=== PATIENT | female | born 1935 | race African-American/Black ===

== ENCOUNTER 2017-01-29 11:03 | Inpatient (IN) | payer MEDICARE, MEDICAID ==
[~2017-01-29] VITALS: Ht 165.1 cm; Wt 77.8 kg
[~2017-01-29 11:03] MED LIST: ASPI-1158; BENA5TAB3; DIAZ5TAB4; GLYB5TAB7; METF500T4; METO5TAB2; OMEPRAZOLE; OXYC-662
[2017-01-29 11:39] LABS: BASOPHILS % 0.6 % (0.0-2.0); HEMATOCRIT. 40.6 % (36.0-48.0); LYMPHOCYTES % 29.8 % (20.0-50.0); MEAN PLATELET VOLUME 8.8 fl (7.4-10.4); NEUTROPHILS % 58.6 % (40.0-76.0); PLATELET 224 x1000/uL (130-400); RED BLOOD CELL COUNT 5.21 mill/uL (4.2-5.4); RED CELL DISTRIBUTION WIDTH 14.4 % (11.6-14.6)
[2017-01-29 11:51] LABS: CARBON DIOXIDE 27 mEq/L (21-32); CHLORIDE 106 mEq/L (98-107)
[2017-01-29 11:55] LABS: TROPONIN I < 0.02 ng/mL (0.00-0.04)
[2017-01-29] MEDS ORDERED: SODIUM CHLORIDE 0.9% 1,000 ML IV ONE (12:06)
[2017-01-29] MEDS ORDERED: INSULIN REGULAR (HUMULIN R) 300UNITS/3ML SUBCUT ONE (12:15)
[2017-01-29 12:34] LABS: CLARITY URINE CLEAR (CLEAR); COLOR URINE YELLOW (YELLOW); KETONES URINE NEGATIVE (NEGATIVE); LEUKOCYTE ESTERASE URINE NEGATIVE (NEGATIVE); NITRITE URINE POSITIVE (NEGATIVE); OCCULT BLOOD URINE NEGATIVE (NEGATIVE); PROTEIN URINE NEGATIVE (NEGATIVE); SPECIFIC GRAVITY URINE 1.019 (1.005-1.030); UROBILINOGEN URINE 0.2 E.U./dL (0.2-1.0)
[2017-01-29] MEDS ORDERED: CEFTRIAXONE 1 G PREMIX 50 ML IV ONE (14:15)
[2017-01-29] MEDS ORDERED: ACET-1465 PO (16:51)
[2017-01-29] MEDS ORDERED: ATOR10TA69 PO (16:51)
[2017-01-29] MEDS ORDERED: LEVVL SQ (16:51)
[2017-01-29] MEDS ORDERED: GLIP10TA3 PO (16:51)
[2017-01-29] MEDS ORDERED: BENA20TA3 PO (16:51)
[2017-01-29] MEDS ORDERED: ESOM40CA PO (16:51)
[2017-01-29] MEDS ORDERED: SITA100T11 PO (16:51)
[2017-01-29] MEDS ORDERED: INSU100C6 SQ (16:51)
[2017-01-29] MEDS ORDERED: GABA-529 PO (16:51)
[2017-01-29] MEDS ORDERED: LORA10TA7 PO (16:51)
[2017-01-29] MEDS ORDERED: ACETAMINOPHEN 325MG TABLET PO PRN (17:15)
[2017-01-29] MEDS ORDERED: DIPHENHYDRAMINE 50MG/ML VIAL IV PRN (17:15)
[2017-01-29] MEDS ORDERED: ONDANSETRON HCL 4MG/2ML VIAL IV PRN (17:15)
[2017-01-29] MEDS ORDERED: MECLIZINE 25MG TABLET PO PRN (17:15)
[2017-01-29] MEDS ORDERED: MAGNESIUM/ALUMINUM HYDROXIDE/SIMETHICONE 30ML UDC PO PRN (17:15)
[2017-01-29] MEDS ORDERED: CLONIDINE 0.1MG TABLET PO PRN (17:15)
[2017-01-29] MEDS ORDERED: GUAIFENESIN 200MG/10ML SUGAR FREE UDC PO PRN (17:15)
[2017-01-29] MEDS: BLOOD SUGAR DIAGNOSTIC STRIP TEST SCH ×2 (17:20→21:31)
[2017-01-29] MEDS ORDERED: DEXTROSE 50% WATER 50ML SYRINGE IV PRN (17:30)
[2017-01-29] MEDS ORDERED: LEVOFLOXACIN 500MG PREMIX 100 ML IV NR (18:30)
[2017-01-29] MEDS: ENOXAPARIN 40MG/0.4ML SYR SUBCUT SCH (18:48)
[2017-01-29] MEDS: GABAPENTIN 100MG CAPSULE PO SCH (18:48)
[2017-01-29] MEDS: INSULIN LISPRO 100 UNITS/ML SUBCUT SCH ×2 (18:50→21:42)
[2017-01-29] MEDS: BENAZEPRIL 20MG TABLET PO SCH (21:40)
[2017-01-29] MEDS: ATORVASTATIN CALCIUM 10MG TABLET PO SCH (21:40)
[2017-01-29] MEDS: HYDROCODONE/ACETAMINOPHEN 5/325MG TABLET PO PRN (21:41)
[2017-01-30] MEDS: BLOOD SUGAR DIAGNOSTIC STRIP TEST SCH ×4 (06:24→21:00)
[2017-01-30 06:27] LABS: BASOPHILS % 0.5 % (0.0-2.0); HEMATOCRIT. 38.1 % (36.0-48.0); HEMOGLOBIN. 12.3 g/dL (12.0-16.0); LYMPHOCYTES % 34.3 % (20.0-50.0); MEAN CORPUSCULAR HEMOGLOBIN 25.2 pg (28.0-32.0); MEAN CORPUSCULAR VOLUME 77.7 fL (81.0-99.0); MEAN PLATELET VOLUME 9.3 fl (7.4-10.4); MONOCYTES % 7.6 % (2.0-8.0); NEUTROPHILS % 53.6 % (40.0-76.0); PLATELET 198 x1000/uL (130-400); RED BLOOD CELL COUNT 4.91 mill/uL (4.2-5.4); RED CELL DISTRIBUTION WIDTH 14.4 % (11.6-14.6)
[2017-01-30] MEDS: GLIPIZIDE 10MG TABLET PO SCH ×2 (06:30→18:02)
[2017-01-30 06:56] LABS: CARBON DIOXIDE 26 mEq/L (21-32); CHLORIDE 108 mEq/L (98-107)
[2017-01-30] MEDS: ASPIRIN 81MG EC TABLET PO SCH ×2 (09:00→09:51)
[2017-01-30] MEDS: BENAZEPRIL 20MG TABLET PO SCH ×2 (09:51→21:57)
[2017-01-30] MEDS: GABAPENTIN 100MG CAPSULE PO SCH ×3 (09:51→18:02)
[2017-01-30] MEDS: LORATADINE 10MG TABLET PO SCH (09:52)
[2017-01-30] MEDS: INSULIN LISPRO 100 UNITS/ML SUBCUT SCH ×4 (09:53→22:03)
[2017-01-30] MEDS ORDERED: LEVOFLOXACIN 250MG PREMIX 50 ML IV SCH (18:00)
[2017-01-30] MEDS: ENOXAPARIN 40MG/0.4ML SYR SUBCUT SCH (18:02)
[2017-01-30] MEDS: ATORVASTATIN CALCIUM 10MG TABLET PO SCH (21:58)
[2017-01-30] MEDS: HYDROCODONE/ACETAMINOPHEN 5/325MG TABLET PO PRN (23:24)
[2017-01-31] MEDS: BLOOD SUGAR DIAGNOSTIC STRIP TEST SCH ×4 (07:39→21:00)
[2017-01-31] MEDS: GLIPIZIDE 10MG TABLET PO SCH ×2 (08:27→18:10)
[2017-01-31] MEDS: ASPIRIN 81MG EC TABLET PO SCH ×2 (08:27→08:31)
[2017-01-31] MEDS: LORATADINE 10MG TABLET PO SCH (08:27)
[2017-01-31] MEDS: GABAPENTIN 100MG CAPSULE PO SCH ×3 (08:27→18:11)
[2017-01-31] MEDS: BENAZEPRIL 20MG TABLET PO SCH ×2 (08:28→21:57)
[2017-01-31] MEDS: INSULIN LISPRO 100 UNITS/ML SUBCUT SCH ×4 (08:28→21:58)
[2017-01-31] MEDS: INSULIN DETEMIR UD 100 UNITS/ML SYR SUBCUT SCH (16:49)
[2017-01-31] MEDS: MECLIZINE 25MG TABLET PO SCH (18:10)
[2017-01-31] MEDS: ENOXAPARIN 40MG/0.4ML SYR SUBCUT SCH (18:11)
[2017-01-31] MEDS ORDERED: TRAZODONE HCL 50MG TABLET PO SCH (21:00)
[2017-01-31] MEDS: ATORVASTATIN CALCIUM 10MG TABLET PO SCH (21:57)
[2017-02-01] MEDS: MECLIZINE 25MG TABLET PO SCH ×3 (01:15→17:59)
[2017-02-01] MEDS: DOCUSATE SODIUM 100MG CAPSULE PO PRN ×2 (01:15→08:22)
[2017-02-01] MEDS: BLOOD SUGAR DIAGNOSTIC STRIP TEST SCH ×3 (07:20→17:52)
[2017-02-01] MEDS: GLIPIZIDE 10MG TABLET PO SCH ×2 (08:22→17:59)
[2017-02-01] MEDS: BENAZEPRIL 20MG TABLET PO SCH (08:22)
[2017-02-01] MEDS: LORATADINE 10MG TABLET PO SCH (08:22)
[2017-02-01] MEDS: GABAPENTIN 100MG CAPSULE PO SCH ×3 (08:22→17:59)
[2017-02-01] MEDS: INSULIN LISPRO 100 UNITS/ML SUBCUT SCH ×3 (08:23→17:50)
[2017-02-01] MEDS: INSULIN DETEMIR UD 100 UNITS/ML SYR SUBCUT SCH (10:29)
[2017-02-01] MEDS ORDERED: LEVOFLOXACIN 250MG TABLET PO SCH (11:00)
[2017-02-01] MEDS: ENOXAPARIN 40MG/0.4ML SYR SUBCUT SCH (17:59)
[2017-02-01 18:18] VITALS: BP 108/60
== END 2017-02-01 18:30 | disposition home or self-care (01) | DRG 690 ==
LOC: ER 11:03 → 6WST 13:03 → ENRESERV 14:27
PROVIDERS: ADMIT Internal Medicine; ATTEND Internal Medicine
DX: N39.0 Urinary tract infection, site not specified (principal); E44.0 Moderate protein-calorie malnutrition; I10 Essential (primary) hypertension; E11.65 Type 2 diabetes mellitus with hyperglycemia; M19.90 Unspecified osteoarthritis, unspecified site; F41.1 Generalized anxiety disorder; R26.89 Other abnormalities of gait and mobility; Z85.3 Personal history of malignant neoplasm of breast; Z83.3 Family history of diabetes mellitus; Z82.49 Family history of ischemic heart disease and other diseases of the circulatory system; Z80.9 Family history of malignant neoplasm, unspecified; Z88.6 Allergy status to analgesic agent; Z88.8 Allergy status to other drugs, medicaments and biological substances; Z90.710 Acquired absence of both cervix and uterus
CPT/HCPCS: 36415; 70450; 71010; 80053; 81001; 82962; 84484; 85025; 87086; 93005; 93970; 96360; 96372; 97162; 99285; J1650; J1815; J1956; J2405; J7030; J7050; J8597

== ENCOUNTER → 2017-06-01 | Outpatient (CLI) | payer MEDICARE, MEDICAID ==
[~2017-06-01] MED LIST changes: +ACET-1465 PO; -ASPI-1158; +ATOR10TA69 PO; +BENA20TA3 PO; -BENA5TAB3; -DIAZ5TAB4; +ESOM40CA PO; +GABA-529 PO; +GLIP10TA3 PO; -GLYB5TAB7; +INSU100C6 SQ; +LEVVL SQ; +LORA10TA7 PO; -METF500T4; -METO5TAB2; -OMEPRAZOLE; -OXYC-662; +SITA100T11 PO
== END | disposition home or self-care (01) ==
LOC: MAMMO 09:47
PROVIDERS: ATTEND Internal Medicine
DX: Z12.31 Encounter for screening mammogram for malignant neoplasm of breast (principal)
CPT/HCPCS: G0202

== ENCOUNTER 2018-02-10 01:08 | Emergency (ER) | payer MEDICARE, MEDICAID ==
[~2018-02-10] VITALS: Ht 165.1 cm; Wt 104.0 kg
[2018-02-10] MEDS ORDERED: SODIUM CHLORIDE 0.9% 1,000 ML IV ONE (01:27)
[2018-02-10] MEDS ORDERED: TRAMADOL 50MG TABLET PO ONE (01:30)
[2018-02-10 02:01] LABS: BASOPHILS % 0.7 % (0.0-2.0); EOSINOPHILS % 3.3 % (0.0-5.0); HEMOGLOBIN. 13.2 g/dL (12.0-16.0); MEAN CORPUSCULAR HEMOGLOBIN 25.4 pg (28.0-32.0); MEAN CORPUSCULAR VOLUME 78.5 fL (81.0-99.0); MEAN PLATELET VOLUME 9.3 fl (7.4-10.4); MONOCYTES % 8.4 % (2.0-8.0); NEUTROPHILS % 55.6 % (40.0-76.0); PLATELET 224 x1000/uL (130-400); RED BLOOD CELL COUNT 5.22 mill/uL (4.2-5.4)
[2018-02-10 02:05] LABS: CHLORIDE 107 mEq/L (98-107)
[2018-02-10 02:15] LABS: BETA HYDROXYBUTYRATE 0.1 mMol/L (0.0-0.3)
[2018-02-10] MEDS ORDERED: INSULIN REGULAR (HUMULIN R) 300UNITS/3ML IV ONE (02:30)
[2018-02-10 05:50] VITALS: BP 122/54
== END 2018-02-10 06:02 | disposition home or self-care (01) ==
LOC: ER 01:08
DX: E11.65 Type 2 diabetes mellitus with hyperglycemia (principal); Z79.82 Long term (current) use of aspirin; Z79.4 Long term (current) use of insulin; Z88.5 Allergy status to narcotic agent
CPT/HCPCS: 36415; 80053; 82010; 82962; 85025; 93005; 96361; 96374; 99285; J1815; J7030

== ENCOUNTER 2018-04-20 10:07 | Emergency (ER) | payer MEDICARE, MEDICAID ==
[~2018-04-20] VITALS: Ht 157.5 cm; Wt 104.0 kg
[~2018-04-20 10:07] MED LIST changes: +BENA20TA10 PO; -BENA20TA3 PO
[2018-04-20] MEDS ORDERED: SODIUM CHLORIDE 0.9% 1,000 ML IV ONE (10:52)
[2018-04-20] MEDS ORDERED: MORPHINE SULFATE 4 MG/ML CPJ (NOT FOR IM USE) IV STA (10:52)
[2018-04-20] MEDS ORDERED: ONDANSETRON HCL 4MG/2ML INJ IV STA (10:52)
[2018-04-20 11:31] LABS: CLARITY URINE CLEAR (CLEAR); COLOR URINE YELLOW (YELLOW); KETONES URINE NEGATIVE (NEGATIVE); LEUKOCYTE ESTERASE URINE 1+ (NEGATIVE); NITRITE URINE NEGATIVE (NEGATIVE); OCCULT BLOOD URINE NEGATIVE (NEGATIVE); PH URINE 6.5 (4.5-8.0); PROTEIN URINE NEGATIVE (NEGATIVE); SPECIFIC GRAVITY URINE 1.009 (1.005-1.030); UROBILINOGEN URINE 0.2 E.U./dL (0.2-1.0)
[2018-04-20 12:06] LABS: CHLORIDE 106 mEq/L (98-107)
[2018-04-20 12:09] LABS: PARTIAL THROMBOPLASTIN TIME 27.6 sec (23.4-31.0); PROTHROMBIN TIME 10.5 sec (9.1-11.1)
[2018-04-20 12:22] LABS: BASOPHILS % 0.4 % (0.0-2.0); EOSINOPHILS % 2.7 % (0.0-5.0); HEMATOCRIT. 42.5 % (36.0-48.0); HEMOGLOBIN. 13.9 g/dL (12.0-16.0); LYMPHOCYTES % 28.1 % (20.0-50.0); MEAN CORPUSCULAR HEMOGLOBIN 25.9 pg (28.0-32.0); MEAN CORPUSCULAR VOLUME 79.3 fL (81.0-99.0); MEAN PLATELET VOLUME 9.5 fl (7.4-10.4); MONOCYTES % 5.3 % (2.0-8.0); NEUTROPHILS % 63.5 % (40.0-76.0); PLATELET 237 x1000/uL (130-400); RED BLOOD CELL COUNT 5.36 mill/uL (4.2-5.4); RED CELL DISTRIBUTION WIDTH 13.9 % (11.6-14.6)
[2018-04-20 13:15] VITALS: BP 118/100
== END 2018-04-20 13:38 | disposition home or self-care (01) ==
LOC: ER 10:07
DX: K43.9 Ventral hernia without obstruction or gangrene (principal); N39.0 Urinary tract infection, site not specified; E11.9 Type 2 diabetes mellitus without complications; I10 Essential (primary) hypertension; J98.11 Atelectasis; J84.10 Pulmonary fibrosis, unspecified; Z90.710 Acquired absence of both cervix and uterus; Z88.5 Allergy status to narcotic agent; Z88.6 Allergy status to analgesic agent; Z88.8 Allergy status to other drugs, medicaments and biological substances; Z79.4 Long term (current) use of insulin; Z98.1 Arthrodesis status
CPT/HCPCS: 36415; 71045; 74176; 80053; 81003; 83690; 85025; 85610; 85730; 86850; 86900; 86901; 87077; 87086; 87186; 93005; 96361; 96374; 96375; 99285; J2270; J2405; J7030

== ENCOUNTER 2018-12-11 21:24 | Inpatient (IN) | payer MEDICARE, MEDICAID ==
[~2018-12-11] VITALS: Ht 152.4 cm; Wt 102.1 kg
[2018-12-11] MEDS ORDERED: SODIUM CHLORIDE 0.9% 1,000 ML IV ONE (23:54)
[2018-12-12 00:08] LABS: BASOPHILS % 0.5 % (0.0-2.0); EOSINOPHILS % 2.9 % (0.0-5.0); HEMATOCRIT. 42.5 % (36.0-48.0); HEMOGLOBIN. 13.9 g/dL (12.0-16.0); LYMPHOCYTES % 25.5 % (20.0-50.0); MEAN CORPUSCULAR HEMOGLOBIN 26.2 pg (28.0-32.0); MEAN CORPUSCULAR VOLUME 80.5 fL (81.0-99.0); MEAN PLATELET VOLUME 10.1 fl (7.4-10.4); NEUTROPHILS % 65.1 % (40.0-76.0); PLATELET 231 x1000/uL (130-400); RED BLOOD CELL COUNT 5.28 mill/uL (4.2-5.4); RED CELL DISTRIBUTION WIDTH 13.5 % (11.6-14.6)
[2018-12-12 00:11] LABS: CHLORIDE 107 mEq/L (98-107)
[2018-12-12 00:14] LABS: CLARITY URINE CLEAR (CLEAR); COLOR URINE YELLOW (YELLOW); KETONES URINE NEGATIVE (NEGATIVE); LEUKOCYTE ESTERASE URINE NEGATIVE (NEGATIVE); NITRITE URINE NEGATIVE (NEGATIVE); OCCULT BLOOD URINE NEGATIVE (NEGATIVE); PROTEIN URINE NEGATIVE (NEGATIVE); SPECIFIC GRAVITY URINE 1.021 (1.005-1.030); UROBILINOGEN URINE 0.2 E.U./dL (0.2-1.0)
[2018-12-12 00:22] LABS: BETA HYDROXYBUTYRATE 0.1 mMol/L (0.0-0.3)
[2018-12-12] MEDS ORDERED: CEFTRIAXONE 1 G PREMIX 50 ML IV SCH ×2 (00:45→21:00)
[2018-12-12 00:52] LABS: BG BASE EXCESS -1.6 mmol/L (-2.0-2.0); BG CARBOXYHEMOGLOBIN 0.9 % (0.5-1.5); BG DEOXYHEMOGLOBIN 4.9 % (0.0-5.0); BG FRACTION INSPIRED OXYGEN 21; BG HCO3 ACT 23.1 mmol/L (22.0-26.0); BG METHEMOGLOBIN 0.2 % (0.0-1.5); BG PCO2 39.2 mmHg (35.0-45.0); BG PH 7.388 (7.350-7.450); BG SAMPLE SITE LEFT RADIAL; BG TOTAL HEMOGLOBIN 13.9 g/dL (12.0-18.0); BG VENT MODE ROOM AIR
[2018-12-12 03:10] VITALS: BP_SYST 140; BP_SYST 145; BP_DIAS 50; BP_DIAS 56
[2018-12-12 04:00] VITALS: BP 145/56
[2018-12-12] MEDS ORDERED: POTA10CA42 PO (04:44)
[2018-12-12] MEDS ORDERED: CELE-84 PO (04:44)
[2018-12-12] MEDS ORDERED: DEXTROSE 50% WATER 50ML SYRINGE IV PRN (05:15)
[2018-12-12] MEDS ORDERED: DIPHENHYDRAMINE 25MG CAPSULE PO PRN (05:15)
[2018-12-12] MEDS: GLIPIZIDE 10MG TABLET PO SCH (06:33)
[2018-12-12] MEDS: GABAPENTIN 100MG CAPSULE PO SCH ×3 (06:33→21:00)
[2018-12-12] MEDS: BLOOD SUGAR DIAGNOSTIC STRIP TEST SCH ×4 (06:34→20:59)
[2018-12-12] MEDS: INSULIN LISPRO 100 UNITS/ML SUBCUT SCH ×6 (06:38→20:59)
[2018-12-12 08:00] VITALS: BP 126/54
[2018-12-12] MEDS: BENAZEPRIL 10MG TABLET PO SCH ×2 (09:20→20:57)
[2018-12-12] MEDS: INSULIN GLARGINE UD 100 UNITS/ML SYR SUBCUT SCH (09:21)
[2018-12-12 12:00] VITALS: BP 106/51
[2018-12-12] MEDS: TRAMADOL 50MG TABLET PO PRN (12:58)
[2018-12-12 16:00] VITALS: BP 142/51
[2018-12-12] MEDS: ENOXAPARIN 30MG/0.3ML SYR SUBCUT SCH (18:04)
[2018-12-12 20:00] VITALS: BP 148/69
[2018-12-12] MEDS: ATORVASTATIN CALCIUM 10MG TABLET PO SCH (20:57)
[2018-12-13] VITALS: BP 124/63
[2018-12-13 04:00] VITALS: BP 115/60
[2018-12-13] MEDS: GABAPENTIN 100MG CAPSULE PO SCH ×3 (05:47→20:51)
[2018-12-13] MEDS: GLIPIZIDE 10MG TABLET PO SCH (06:22)
[2018-12-13] MEDS: INSULIN LISPRO 100 UNITS/ML SUBCUT SCH ×7 (06:24→20:50)
[2018-12-13] MEDS: BLOOD SUGAR DIAGNOSTIC STRIP TEST SCH ×4 (06:25→20:52)
[2018-12-13 08:00] VITALS: BP 112/58
[2018-12-13] MEDS: BENAZEPRIL 10MG TABLET PO SCH ×2 (08:51→20:52)
[2018-12-13] MEDS: ENOXAPARIN 30MG/0.3ML SYR SUBCUT SCH ×2 (08:52→20:51)
[2018-12-13] MEDS: TRAMADOL 50MG TABLET PO PRN (08:52)
[2018-12-13] MEDS: INSULIN GLARGINE UD 100 UNITS/ML SYR SUBCUT SCH (09:06)
[2018-12-13] MEDS: CELECOXIB 200MG CAPSULE PO SCH (15:18)
[2018-12-13] MEDS: MAGNESIUM HYDROXIDE 400MG/5ML 30ML UDC PO PRN (15:22)
[2018-12-13 16:00] VITALS: BP 148/69
[2018-12-13 20:00] VITALS: BP 97/53
[2018-12-13] MEDS: ATORVASTATIN CALCIUM 10MG TABLET PO SCH (20:51)
[2018-12-13] MEDS ORDERED: TRAZODONE HCL 50MG TABLET PO SCH (21:00)
[2018-12-14] VITALS: BP 97/55
[2018-12-14 04:00] VITALS: BP 110/61
[2018-12-14] MEDS: GABAPENTIN 100MG CAPSULE PO SCH ×2 (06:01→12:12)
[2018-12-14] MEDS: MAGNESIUM HYDROXIDE 400MG/5ML 30ML UDC PO PRN (06:02)
[2018-12-14] MEDS: GLIPIZIDE 10MG TABLET PO SCH (06:21)
[2018-12-14] MEDS: INSULIN LISPRO 100 UNITS/ML SUBCUT SCH ×4 (06:24→12:13)
[2018-12-14] MEDS: BLOOD SUGAR DIAGNOSTIC STRIP TEST SCH ×2 (06:25→10:46)
[2018-12-14] MEDS: ENOXAPARIN 30MG/0.3ML SYR SUBCUT SCH (08:03)
[2018-12-14] MEDS: BENAZEPRIL 10MG TABLET PO SCH (08:03)
[2018-12-14] MEDS: CELECOXIB 200MG CAPSULE PO SCH (08:03)
[2018-12-14] MEDS ORDERED: INSULIN GLARGINE UD 100 UNITS/ML SYR SUBCUT SCH (10:00)
== END 2018-12-14 14:45 | disposition home health service (06) | DRG 637 ==
LOC: ER 21:48 → EDBEDREQ 12-12 01:07 → EDBEDREQTM 12-12 01:07 → ENRESERV 12-12 01:56 → 8WST 12-12 03:19
PROVIDERS: ADMIT Internal Medicine; ATTEND Internal Medicine
DX: E11.65 Type 2 diabetes mellitus with hyperglycemia (principal); G92 Toxic encephalopathy; Z68.41 Body mass index [BMI] 40.0-44.9, adult; I10 Essential (primary) hypertension; E66.01 Morbid (severe) obesity due to excess calories; E78.00 Pure hypercholesterolemia, unspecified; G89.4 Chronic pain syndrome; M54.2 Cervicalgia; M54.5 Low back pain; E11.42 Type 2 diabetes mellitus with diabetic polyneuropathy; M15.9 Polyosteoarthritis, unspecified; E87.5 Hyperkalemia; F41.1 Generalized anxiety disorder; I11.9 Hypertensive heart disease without heart failure; M75.02 Adhesive capsulitis of left shoulder; Z90.710 Acquired absence of both cervix and uterus; Z79.4 Long term (current) use of insulin; Z88.6 Allergy status to analgesic agent; Z88.5 Allergy status to narcotic agent; Z88.8 Allergy status to other drugs, medicaments and biological substances; Z79.899 Other long term (current) drug therapy
CPT/HCPCS: 36415; 36600; 71045; 82010; 82375; 82805; 82962; 84484; 93005; 93970; 96365; 97116; 97162; 97166; 99285; J0696; J1650; J1815; J7030; Q0163

== ENCOUNTER 2019-01-16 01:12 | Inpatient (IN) | payer MEDICARE, MEDICAID ==
[~2019-01-16] VITALS: Ht 162.6 cm; Wt 108.4 kg
[~2019-01-16 01:12] MED LIST changes: +CELE-84 PO; +POTA10CA42 PO
[2019-01-16] MEDS ORDERED: SODIUM CHLORIDE 0.9% 1,000 ML IV ONE (03:29)
[2019-01-16 04:21] LABS: BASOPHILS % 0.4 % (0.0-2.0); EOSINOPHILS % 1.8 % (0.0-5.0); HEMATOCRIT. 40.3 % (36.0-48.0); HEMOGLOBIN. 13.2 g/dL (12.0-16.0); LYMPHOCYTES % 13.7 % (20.0-50.0); MEAN CORPUSCULAR HEMOGLOBIN 26.2 pg (28.0-32.0); MEAN CORPUSCULAR VOLUME 79.9 fL (81.0-99.0); MEAN PLATELET VOLUME 9.5 fl (7.4-10.4); MONOCYTES % 6.9 % (2.0-8.0); NEUTROPHILS % 77.2 % (40.0-76.0); PLATELET 254 x1000/uL (130-400); RED BLOOD CELL COUNT 5.04 mill/uL (4.2-5.4); RED CELL DISTRIBUTION WIDTH 13.4 % (11.6-14.6)
[2019-01-16 04:22] LABS: CLARITY URINE CLEAR (CLEAR); COLOR URINE YELLOW (YELLOW); KETONES URINE NEGATIVE (NEGATIVE); LEUKOCYTE ESTERASE URINE NEGATIVE (NEGATIVE); NITRITE URINE NEGATIVE (NEGATIVE); OCCULT BLOOD URINE NEGATIVE (NEGATIVE); PROTEIN URINE NEGATIVE (NEGATIVE); SPECIFIC GRAVITY URINE 1.009 (1.005-1.030); UROBILINOGEN URINE 0.2 E.U./dL (0.2-1.0)
[2019-01-16 04:24] LABS: CHLORIDE 114 mEq/L (98-107)
[2019-01-16] MEDS ORDERED: ONDANSETRON HCL 4MG/2ML INJ IV NR (05:00)
[2019-01-16] MEDS ORDERED: METRONIDAZOLE 500MG TABLET PO ONE (05:15)
[2019-01-16] MEDS ORDERED: IOHEXOL-300 100 ML BOTTLE ONE (06:07)
[2019-01-16 15:30] VITALS: BP 113/56
[2019-01-16 16:00] VITALS: BP 113/56
[2019-01-16 16:37] LABS: TOTAL IRON BINDING CAPACITY 291 ug/dL (250-450)
[2019-01-16] MEDS ORDERED: CLONIDINE 0.1MG TABLET PO PRN (17:00)
[2019-01-16] MEDS ORDERED: ACETAMINOPHEN 325MG TABLET PO PRN (17:00)
[2019-01-16] MEDS ORDERED: ONDANSETRON HCL 4MG/2ML INJ IV PRN (17:00)
[2019-01-16] MEDS ORDERED: IPRATROPIUM/ALBUTEROL 0.5-3(2.5)MG/3ML NEB INH PRN (17:00)
[2019-01-16] MEDS: LACTATED RINGERS 1,000 ML IV SCH (17:32)
[2019-01-16] MEDS: LEVOFLOXACIN 250MG TABLET PO SCH (17:32)
[2019-01-16] MEDS ORDERED: DEXTROSE 50% WATER 50ML SYRINGE IV PRN (18:15)
[2019-01-16 20:00] VITALS: BP 144/70
[2019-01-16] MEDS: BLOOD SUGAR DIAGNOSTIC STRIP TEST SCH (21:00)
[2019-01-16] MEDS: METRONIDAZOLE 500 MG PREMIX 100 ML IV SCH (22:00)
[2019-01-16] MEDS: HYDROCODONE/ACETAMINOPHEN 5/325MG TABLET PO PRN (22:20)
[2019-01-16] MEDS: INSULIN LISPRO 100 UNITS/ML SUBCUT SCH (22:31)
[2019-01-17] VITALS (7 sets, daily range): BP systolic 121–139; BP diastolic 56–69
[2019-01-17] MEDS: METRONIDAZOLE 500 MG PREMIX 100 ML IV SCH ×2 (05:57→12:47)
[2019-01-17] MEDS: BLOOD SUGAR DIAGNOSTIC STRIP TEST SCH ×4 (06:00→21:00)
[2019-01-17 07:13] LABS: BASOPHILS % 0.3 % (0.0-2.0); EOSINOPHILS % 3.6 % (0.0-5.0); HEMATOCRIT. 37.7 % (36.0-48.0); HEMOGLOBIN. 11.9 g/dL (12.0-16.0); MEAN CORPUSCULAR HEMOGLOBIN 25.6 pg (28.0-32.0); MEAN CORPUSCULAR VOLUME 80.7 fL (81.0-99.0); MEAN PLATELET VOLUME 8.8 fl (7.4-10.4); NEUTROPHILS % 62.1 % (40.0-76.0); PLATELET 207 x1000/uL (130-400); RED BLOOD CELL COUNT 4.67 mill/uL (4.2-5.4); RED CELL DISTRIBUTION WIDTH 13.5 % (11.6-14.6)
[2019-01-17 07:24] LABS: CHLORIDE 114 mEq/L (98-107)
[2019-01-17 07:32] LABS: LDL CHOLESTEROL 43 mg/dL (5-100)
[2019-01-17 07:34] LABS: HDL CHOLESTEROL 34 mg/dL (40-59)
[2019-01-17] MEDS: INSULIN LISPRO 100 UNITS/ML SUBCUT SCH ×4 (08:37→22:58)
[2019-01-17] MEDS: LEVOFLOXACIN 250MG TABLET PO SCH (11:26)
[2019-01-17] MEDS: LACTATED RINGERS 1,000 ML IV SCH ×2 (11:26→13:00)
[2019-01-17] MEDS ORDERED: METRONIDAZOLE 500MG TABLET PO SCH (22:00)
[2019-01-17] MEDS: HYDROCODONE/ACETAMINOPHEN 5/325MG TABLET PO PRN (22:54)
[2019-01-18] VITALS: BP 114/68
[2019-01-18 04:00] VITALS: BP 123/62
[2019-01-18] MEDS: BLOOD SUGAR DIAGNOSTIC STRIP TEST SCH ×2 (07:20→12:20)
[2019-01-18 08:00] VITALS: BP 133/60
[2019-01-18] MEDS: INSULIN LISPRO 100 UNITS/ML SUBCUT SCH ×2 (08:17→12:50)
[2019-01-18] MEDS ORDERED: LEVOFLOXACIN 500MG TABLET PO SCH (11:00)
[2019-01-18 12:00] VITALS: BP 133/64
[2019-01-18 14:19] VITALS: BP 133/64
[2019-01-19 10:06] LABS: SACCHAROMYCES CEREVISIAE IGG <20.0 Units (0.0-24.9)
[2019-01-19 17:14] LABS: ATYPICAL pANCA <1:20 titer (Neg:<1:20)
[2019-01-20 10:06] LABS: SACCHAROMYCES CEREVISIAE IGM <20.0 Units (0.0-24.9)
[2019-01-27 15:32] LABS: ANTI-MYELOPEROXIDASE AB < 9.0 U/mL (0.0-9.0); ANTI-PROTEINASE 3 ABS < 3.5 U/mL (0.0-3.5); ATYPICAL P-ANCA <1:20 titer (Neg:<1:20); CYTOPLASMIC C-ANCA <1:20 titer (Neg:<1:20); PERINUCLEAR P-ANCA <1:20 titer (Neg:<1:20)
== END 2019-01-18 14:53 | disposition home or self-care (01) | DRG 392 ==
LOC: ER 01:12 → 6EST 05:07 → EDBEDREQ 13:03 → ENRESERV 13:06
PROVIDERS: ADMIT Internal Medicine; ATTEND Internal Medicine
DX: K52.9 Noninfective gastroenteritis and colitis, unspecified (principal); J98.11 Atelectasis; Z68.41 Body mass index [BMI] 40.0-44.9, adult; E61.1 Iron deficiency; E66.01 Morbid (severe) obesity due to excess calories; E78.00 Pure hypercholesterolemia, unspecified; E78.5 Hyperlipidemia, unspecified; F41.1 Generalized anxiety disorder; I10 Essential (primary) hypertension; E11.40 Type 2 diabetes mellitus with diabetic neuropathy, unspecified; J44.9 Chronic obstructive pulmonary disease, unspecified; J84.10 Pulmonary fibrosis, unspecified; K42.9 Umbilical hernia without obstruction or gangrene; K44.9 Diaphragmatic hernia without obstruction or gangrene; M19.90 Unspecified osteoarthritis, unspecified site; Z79.4 Long term (current) use of insulin; Z90.710 Acquired absence of both cervix and uterus; Z88.6 Allergy status to analgesic agent; Z88.8 Allergy status to other drugs, medicaments and biological substances; Z79.899 Other long term (current) drug therapy
CPT/HCPCS: 36415; 71045; 74177; 80048; 80061; 82728; 82962; 83036; 83520; 83540; 83550; 83605; 83880; 84443; 84484; 86256; 86671; 93005; 96361; 96374; 99285; J1815; J2405; J3490; J7030; J7120; Q9967

== ENCOUNTER 2019-06-03 23:06 | Emergency (ER) | payer MEDICARE, MEDICAID ==
[~2019-06-03] VITALS: Ht 152.4 cm; Wt 95.0 kg
[2019-06-04] MEDS ORDERED: HYDROCODONE/ACETAMINOPHEN 5/325MG TABLET PO ONE (00:30)
[2019-06-04 00:35] LABS: BASOPHILS % 0.6 % (0.0-2.0); EOSINOPHILS % 3.3 % (0.0-5.0); HEMATOCRIT. 43.5 % (36.0-48.0); HEMOGLOBIN. 14.2 g/dL (12.0-16.0); LYMPHOCYTES % 31.5 % (20.0-50.0); MEAN CORPUSCULAR HEMOGLOBIN 25.9 pg (28.0-32.0); MEAN CORPUSCULAR VOLUME 79.4 fL (81.0-99.0); MEAN PLATELET VOLUME 8.8 fl (7.4-10.4); MONOCYTES % 7.6 % (2.0-8.0); PLATELET 236 x1000/uL (130-400); RED BLOOD CELL COUNT 5.48 mill/uL (4.2-5.4); RED CELL DISTRIBUTION WIDTH 13.6 % (11.6-14.6)
[2019-06-04 00:40] LABS: CHLORIDE 110 mEq/L (98-107)
[2019-06-04 05:09] VITALS: BP 132/65
== END 2019-06-04 05:11 | disposition home or self-care (01) ==
LOC: ER 23:14
DX: R10.9 Unspecified abdominal pain (principal); E11.9 Type 2 diabetes mellitus without complications; I10 Essential (primary) hypertension; Z79.899 Other long term (current) drug therapy; Z88.6 Allergy status to analgesic agent; Z88.5 Allergy status to narcotic agent
CPT/HCPCS: 36415; 99283

== ENCOUNTER 2019-06-23 00:38 | Emergency (ER) | payer MEDICARE, MEDICAID ==
[~2019-06-23] VITALS: Ht 165.1 cm; Wt 106.0 kg
[2019-06-23] MEDS ORDERED: KETOROLAC 60MG/2ML VIAL IM ONE (04:30)
[2019-06-23 05:03] LABS: BASOPHILS % 0.5 % (0.0-2.0); EOSINOPHILS % 2.2 % (0.0-5.0); HEMATOCRIT. 41.4 % (36.0-48.0); HEMOGLOBIN. 13.4 g/dL (12.0-16.0); LYMPHOCYTES % 20.6 % (20.0-50.0); MEAN CORPUSCULAR HEMOGLOBIN 25.9 pg (28.0-32.0); MEAN PLATELET VOLUME 9.3 fl (7.4-10.4); MONOCYTES % 5.9 % (2.0-8.0); NEUTROPHILS % 70.8 % (40.0-76.0); PLATELET 210 x1000/uL (130-400); RED BLOOD CELL COUNT 5.17 mill/uL (4.2-5.4); RED CELL DISTRIBUTION WIDTH 13.4 % (11.6-14.6)
[2019-06-23 05:21] LABS: CHLORIDE 110 mEq/L (98-107)
[2019-06-23 05:52] LABS: CLARITY URINE CLEAR (CLEAR); COLOR URINE YELLOW (YELLOW); KETONES URINE NEGATIVE (NEGATIVE); LEUKOCYTE ESTERASE URINE NEGATIVE (NEGATIVE); NITRITE URINE NEGATIVE (NEGATIVE); OCCULT BLOOD URINE NEGATIVE (NEGATIVE); PH URINE 6.5 (4.5-8.0); PROTEIN URINE 1+ (NEGATIVE); SPECIFIC GRAVITY URINE 1.017 (1.005-1.030)
[2019-06-23 06:53] VITALS: BP 125/59
== END 2019-06-23 07:03 | disposition home or self-care (01) ==
LOC: ER 01:05
DX: R10.9 Unspecified abdominal pain (principal); E11.9 Type 2 diabetes mellitus without complications; I10 Essential (primary) hypertension; Z79.4 Long term (current) use of insulin; Z79.899 Other long term (current) drug therapy; Z88.6 Allergy status to analgesic agent; Z88.5 Allergy status to narcotic agent; W01.0XXA Fall on same level from slipping, tripping and stumbling without subsequent striking against object, initial encounter; Y92.002 Bathroom of unspecified non-institutional (private) residence as the place of occurrence of the external cause; Y93.89 Activity, other specified; Y99.8 Other external cause status
CPT/HCPCS: 36415; 74176; 80053; 81003; 83690; 85025; 96372; 99284; J1885

== ENCOUNTER → 2019-10-09 | Outpatient (CLI) | payer MEDICARE, MEDICAID ==
[2019-10-09 10:22] LABS: BASOPHILS % 0.5 % (0.0-2.0); EOSINOPHILS % 2.9 % (0.0-5.0); HEMATOCRIT. 42.2 % (36.0-48.0); HEMOGLOBIN. 13.8 g/dL (12.0-16.0); LYMPHOCYTES % 25.3 % (20.0-50.0); MEAN CORPUSCULAR VOLUME 79.7 fL (81.0-99.0); MONOCYTES % 5.4 % (2.0-8.0); NEUTROPHILS % 65.9 % (40.0-76.0); PLATELET 232 x1000/uL (130-400); RED BLOOD CELL COUNT 5.29 mill/uL (4.2-5.4); RED CELL DISTRIBUTION WIDTH 13.9 % (11.6-14.6)
== END | disposition home or self-care (01) ==
LOC: LAB 09:32
PROVIDERS: ATTEND Internal Medicine
DX: Z01.818 Encounter for other preprocedural examination (principal); E11.9 Type 2 diabetes mellitus without complications
CPT/HCPCS: 36415; 80051; 82947; 85025

== ENCOUNTER → 2019-10-10 | Outpatient (CLI) | payer MEDICARE, MEDICAID | END | disposition home or self-care (01) | LOC: CARD 09:06 | PROVIDERS: ATTEND Internal Medicine | DX: Z01.818 Encounter for other preprocedural examination (principal) | CPT/HCPCS: 93005 ==

== ENCOUNTER → 2020-01-26 | Outpatient (CLI) | payer MEDICARE, MEDICAID ==
[~2020-01-26] MED LIST changes: +FURO-152 PO; +NAPR375T5 PO
== END | disposition home or self-care (01) ==
LOC: LAB 09:42
PROVIDERS: ATTEND Ophthalmology
DX: Z01.818 Encounter for other preprocedural examination (principal); Z11.59 Encounter for screening for other viral diseases
CPT/HCPCS: 87635; C9803

== ENCOUNTER 2020-01-30 06:10 | Day surgery (SDC) | payer MEDICARE, MEDICAID ==
[~2020-01-30] VITALS: Ht 163.8 cm; Wt 106.6 kg
[2020-01-30] MEDS ORDERED: PHENYLEPHRINE HCL 10% OPHTH DROPS 5ML RIGHTEYE NR (06:30)
[2020-01-30] MEDS ORDERED: CYCLOPENTOLATE HCL 1% OPHTH DROPS 2ML RIGHTEYE NR (06:30)
[2020-01-30] MEDS ORDERED: TROPICAMIDE 1% OPHTH DROPS 15ML RIGHTEYE NR (06:30)
[2020-01-30] MEDS ORDERED: BALANCED SALT IRRIG SOLN COMB1 500ML OP ONE (07:00)
[2020-01-30] MEDS ORDERED: INSULIN REGULAR (HUMULIN R) UD 100 UNITS/ML SYR SUBCUT ONE (07:05)
[2020-01-30] MEDS ORDERED: INSULIN REGULAR (HUMULIN R) 300UNITS/3ML ONE (07:09)
[2020-01-30] MEDS ORDERED: INSULIN REGULAR (HUMULIN R) 300UNITS/3ML SUBCUT ONE (07:30)
[2020-01-30] MEDS ORDERED: FENTANYL CITRATE/PF 50MCG/ML 2ML VIAL ONE (08:23)
[2020-01-30] MEDS ORDERED: MIDAZOLAM HCL 2 MG/2 ML VIAL ONE (08:23)
[2020-01-30] MEDS ORDERED: HYALURONATE SODIUM 10 MG/ML 0.55ML SYRINGE IO ONE (08:25)
[2020-01-30] MEDS ORDERED: ACETAMINOPHEN 500MG TABLET PO NR (09:00)
== END 2020-01-30 11:20 | disposition home or self-care (01) ==
LOC: OR 06:10
PROVIDERS: ATTEND Ophthalmology
DX: E11.36 Type 2 diabetes mellitus with diabetic cataract (principal); H25.89 Other age-related cataract; E11.22 Type 2 diabetes mellitus with diabetic chronic kidney disease; I12.9 Hypertensive chronic kidney disease with stage 1 through stage 4 chronic kidney disease, or unspecified chronic kidney disease; N18.9 Chronic kidney disease, unspecified; M19.90 Unspecified osteoarthritis, unspecified site; E78.00 Pure hypercholesterolemia, unspecified; F41.9 Anxiety disorder, unspecified; F32.9 Major depressive disorder, single episode, unspecified; K21.9 Gastro-esophageal reflux disease without esophagitis; Z90.710 Acquired absence of both cervix and uterus; Z98.890 Other specified postprocedural states; Z79.899 Other long term (current) drug therapy; Z88.5 Allergy status to narcotic agent; Z88.8 Allergy status to other drugs, medicaments and biological substances; Z79.4 Long term (current) use of insulin; Z87.891 Personal history of nicotine dependence; Z88.6 Allergy status to analgesic agent
CPT/HCPCS: 66984; 82962; 93005; J1815; J2250; J3010; J3490; V2632

== ENCOUNTER 2020-07-04 21:48 | Emergency (ER) | payer MEDICARE, MEDICAID ==
[~2020-07-04] VITALS: Ht 162.6 cm; Wt 105.0 kg
[~2020-07-04 21:48] MED LIST changes: -ACET-1465 PO; -CELE-84 PO; -LORA10TA7 PO
[2020-07-05] MEDS: ACETAMINOPHEN 325MG TABLET PO ONE (01:16)
[2020-07-05 01:56] LABS: BASOPHILS % 0.6 % (0.0-2.0); EOSINOPHILS % 0.5 % (0.0-5.0); HEMATOCRIT. 43.5 % (36.0-48.0); HEMOGLOBIN. 14.3 g/dL (12.0-16.0); LYMPHOCYTES % 28.6 % (20.0-50.0); MEAN CORPUSCULAR HEMOGLOBIN 25.9 pg (28.0-32.0); MEAN CORPUSCULAR VOLUME 78.6 fL (81.0-99.0); MEAN PLATELET VOLUME 9.2 fl (7.4-10.4); MONOCYTES % 12.9 % (2.0-8.0); NEUTROPHILS % 57.4 % (40.0-76.0); PLATELET 164 x1000/uL (130-400); RED BLOOD CELL COUNT 5.53 mill/uL (4.2-5.4); RED CELL DISTRIBUTION WIDTH 13.4 % (11.6-14.6)
[2020-07-05 02:00] LABS: CHLORIDE 107 mEq/L (98-107)
[2020-07-05 05:57] LABS: CLARITY URINE CLOUDY (CLEAR); COLOR URINE YELLOW (YELLOW); KETONES URINE NEGATIVE (NEGATIVE); LEUKOCYTE ESTERASE URINE 1+ (NEGATIVE); NITRITE URINE NEGATIVE (NEGATIVE); OCCULT BLOOD URINE 1+ (NEGATIVE); PROTEIN URINE 3+ (NEGATIVE); SPECIFIC GRAVITY URINE 1.018 (1.005-1.030); UROBILINOGEN URINE 0.2 E.U./dL (0.2-1.0)
[2020-07-05 11:15] VITALS: BP 135/68
== END 2020-07-05 11:49 | disposition home or self-care (01) ==
LOC: ER 21:48 → EDBEDREQ 07-05 04:39 → CANBEDREQ 07-05 09:31 → ER 07-05 11:49
DX: M54.5 Low back pain (principal); R26.89 Other abnormalities of gait and mobility; E11.9 Type 2 diabetes mellitus without complications; I10 Essential (primary) hypertension; E78.00 Pure hypercholesterolemia, unspecified; Z88.6 Allergy status to analgesic agent; Z88.5 Allergy status to narcotic agent; Z79.899 Other long term (current) drug therapy; Z79.4 Long term (current) use of insulin; Z90.710 Acquired absence of both cervix and uterus
CPT/HCPCS: 36415; 72131; 73502; 80053; 81003; 85025; 99285

== ENCOUNTER 2020-07-07 09:29 | Emergency (ER) | payer MEDICARE, MEDICAID ==
[~2020-07-07] VITALS: Ht 162.6 cm; Wt 113.0 kg
[2020-07-07] MEDS ORDERED: HYDROCODONE/ACETAMINOPHEN 5/325MG TABLET PO NR (11:00)
[2020-07-07 15:27] VITALS: BP 142/82
== END 2020-07-07 15:29 | disposition home or self-care (01) ==
LOC: ER 09:33
DX: M54.5 Low back pain (principal); E11.9 Type 2 diabetes mellitus without complications; I10 Essential (primary) hypertension; Z79.4 Long term (current) use of insulin; Z79.899 Other long term (current) drug therapy; Z88.5 Allergy status to narcotic agent; Z88.6 Allergy status to analgesic agent; G89.29 Other chronic pain
CPT/HCPCS: 82962; 99283